=== PATIENT | male | born 1960 | race Caucasian/White ===

== ENCOUNTER → 2017-08-08 | Outpatient (CLI) | payer BC | LOC: COL.LAB 15:22 | DX: Z01.812 Encounter for preprocedural laboratory examination (principal) ==

== ENCOUNTER 2021-10-17 12:44 | Day surgery (SDC) | payer OTHER ==
[2021-10-17] VITALS (8 sets, daily range): BP systolic 120–146; BP diastolic 74–85; PULSE 63–80; TEMP 97.1–98
[~2021-10-17] VITALS: Ht 177.8 cm; Wt 102.7 kg
[2021-10-17] MEDS ORDERED: EFFEXOR 75M75 MG/TAB PO (13:14)
[2021-10-17] MEDS ORDERED: CELEBREX 200MG200 MG PO (13:15)
[2021-10-17] MEDS ORDERED: MOTRIN 600600 MG/TAB PO (16:14)
[2021-10-17] MEDS ORDERED: NORCO 325 MG-51 TAB PO (16:14)
--- NOTE | 2021-10-17 20:35 | NUR ---
PT awake and alert, eating and drinking, no NV reported, up to restroom and voided without assistance. pain controlled with po norco and motrin, IV to [facility] dc'd, x3 lap sites to abd CDI, discharge instructions given, pt's sister here to transport him home.
== END 2021-10-17 20:50 | disposition home or self-care (01) ==
LOC: SDCO 12:44 → SURG 18:30 → SDCO 20:50
DX: K40.90 Unilateral inguinal hernia, without obstruction or gangrene, not specified as recurrent (principal); Z87.891 Personal history of nicotine dependence
CPT/HCPCS: OP; C1781; J0690; J1100; J2405; J2704; J3010; J7120